=== PATIENT | female | born 1935 | race Caucasian/White ===

== ENCOUNTER 2017-06-14 13:08 | Emergency (ER) | payer MEDICARE, OTHER ==
--- NOTE | 2017-06-14 13:49 | Emergency Department Record ---
History of Present Illness - General Chief Complaint: General Stated Complaint: CONSTIPATION X4 DAYS Time Seen by Provider: 06/14/17 13:42 Mode of Arrival: Ambulatory - [place] Coma Scale Eye Response: (4) Open spontaneously Motor Response: (6) Obeys commands Verbal Response: (5) Oriented [place] Total: 15 - Related Data Home Medications Medication Instructions Recorded Confirmed Last Taken Ascorbic Acid [Vitamin C] 1,000 mg PO DAILY 06/14/17 06/14/17 06/14/17 Aspirin [Aspir-Low] 81 mg PO DAILY 06/14/17 06/14/17 06/14/17 Cholecalciferol (Vitamin D3) 2,000 unit PO DAILY 06/14/17 06/14/17 06/14/17 [Vitamin D3] Multivitamin [Multi-Vitamin Daily] 1 each PO DAILY 06/14/17 06/14/17 06/14/17 Rosuvastatin Calcium [Crestor] 40 mg PO DAILY 06/14/17 06/14/17 06/14/17 Allergies Allergy/AdvReac Type Severity Reaction Status Date / Time No Known Drug Allergies Allergy Verified 06/14/17 13:14 Travel Screening - Travel/Exposure Within Last 30 Days Have you traveled within the last 30 days?: No - Travel/Exposure Within Last Year Have you traveled outside the [place] in the last year?: No - Additonal Travel Details Have you been exposed to anyone with a communicable illness?: No - Travel Symptoms Symptom Screening: None Past Medical History - SOCIAL HISTORY Smoking Status: Never smoker Alcohol Use: None Drug Use: None - RESPIRATORY Hx Respiratory Disorders: No - CARDIOVASCULAR Hx Cardio Disorders: Yes Hx Chest Pain: Yes (in past no problems for 2 years) Hx Hypotension: Yes Comment:: high cholesterol.pt just had echo and carotid doppler for memory loss. - NEURO Hx Neuro Disorders: Yes Comment:: had one day a few months ago when she had a memory problem. having work up - GI Hx GI Disorders: Yes Hx Abdominal Pain: Yes (ternder area where mass is) Hx Reflux: Yes - Hx Genitourinary Disorders: Yes Hx Bladder Problem: Yes (urgency) - ENDOCRINE Hx Endocrine Disorders: No - MUSCULOSKELETAL Hx Musculoskeletal Disorders: Yes Hx Arthritis: Yes (low back and hands) Hx Gout: Yes Hx Osteoporosis: Yes - PSYCH Hx Psych Problems: Yes Hx Anxiety: Yes (because of surgery) - HEMATOLOGY/ONCOLOGY Hx Hematology/Oncology Disorders: Yes Hx Anemia: Yes (in past) Hx Cancer: Yes (skin CA conn 3-4 hours ago) Family Medical History Any Significant Family History?: Yes Hx Cancer: Brother/Sister Hx Heart Disease: Mother Hx Resp Disorders: Father Course Vital Signs 06/14/17 06/14/17 13:26 13:39 Temperature 98 F 98 F Pulse Rate 71 71 Respiratory 16 Rate Blood Pressure 138/72 138/72 Pulse Ox 98 Disposition Clinical Impression: Constipation Disposition: Home, Self-Care Condition: (1) Good Additional Instructions: follow up with family Dr. martins twice a day and if stools get loose go to once a day Forms: Patient Portal Access Quality - Quality Measures Quality Measures: N/A - Blood Pressure Screening Does Patient Have Any of the Following: No Blood Pressure Classification: Pre-Hypertensive BP Reading Systolic Measurement: 138 Diastolic Measurement: 72 Screening for High Blood Pressure: < Pre-Hypertensive BP, F/U Documented > [ G8950] Pre-Hypertensive Follow-up Interventions: Referral to alternative/primary care provider.
--- NOTE | 2017-06-14 13:57 | Emergency Department Record ---
History of Present Illness - General Chief Complaint: General Stated Complaint: CONSTIPATION X4 DAYS Time Seen by Provider: 06/14/17 13:42 Mode of Arrival: Ambulatory - History of Present Illness Initial comments: Patient states no BM for 4 days and see by GI Dr. Bowles and she was sent to the ED to have a enema. She didn't think she could do it at home. - [place] Coma Scale Eye Response: (4) Open spontaneously Motor Response: (6) Obeys commands Verbal Response: (5) Oriented [place] Total: 15 - Related Data Home Medications Medication Instructions Recorded Confirmed Last Taken Ascorbic Acid [Vitamin C] 1,000 mg PO DAILY 06/14/17 06/14/17 06/14/17 Aspirin [Aspir-Low] 81 mg PO DAILY 06/14/17 06/14/17 06/14/17 Cholecalciferol (Vitamin D3) 2,000 unit PO DAILY 06/14/17 06/14/17 06/14/17 [Vitamin D3] Multivitamin [Multi-Vitamin Daily] 1 each PO DAILY 06/14/17 06/14/17 06/14/17 Rosuvastatin Calcium [Crestor] 40 mg PO DAILY 06/14/17 06/14/17 06/14/17 Allergies Allergy/AdvReac Type Severity Reaction Status Date / Time No Known Drug Allergies Allergy Verified 06/14/17 13:14 Travel Screening - Travel/Exposure Within Last 30 Days Have you traveled within the last 30 days?: No - Travel/Exposure Within Last Year Have you traveled outside the [place] in the last year?: No - Additonal Travel Details Have you been exposed to anyone with a communicable illness?: No - Travel Symptoms Symptom Screening: None Review of Systems Reviewed: No additional complaints except as noted below Constitutional: Reports: As per HPI. Denies: Chills, Fever, Malaise, Night sweats, Weakness, Weight change Eyes: Reports: As per HPI. Denies: Eye discharge, Eye pain, Photophobia, Vision change ENT: Reports: As per HPI. Denies: Congestion, Dental pain, Ear pain, Epistaxis , Hearing loss, Throat pain Respiratory: Reports: As per HPI. Denies: Cough, Dyspnea, Hemoptysis, Stridor, Wheezes Cardiovascular: Reports: As per HPI. Denies: Arrhythmia, Chest pain, Dyspnea on exertion, Edema, Murmurs, Orthopnea, Palpitations, Paroxysmal nocturnal dyspnea, Rheumatic Fever, Syncope Endocrine: Reports: As per HPI. Denies: Fatigue, Heat or cold intolerance, Polydipsia, Polyuria Gastrointestinal: Reports: As per HPI. Denies: Abdominal pain, Constipation, Diarrhea, Hematemesis, Hematochezia, Melena, Nausea, Vomiting Genitourinary: Reports: As per HPI. Denies: Abnormal menses, Discharge, Dyspareunia, Dysuria, Frequency, Hematuria, Incontinence, Retention, Urgency Musculoskeletal: Reports: As per HPI. Denies: Arthralgia, Back pain, Gout, Joint swelling, Myalgia, Neck pain Skin: Reports: As per HPI. Denies: Bruising, Change in color, Change in hair/ nails, Lesions, Pruritus, Rash Neurological: Reports: As per HPI. Denies: Abnormal gait, Confusion, Headache, Numbness, Paresthesias, Seizure, Tingling, Tremors, Vertigo, Weakness Psychiatric: Reports: As per HPI. Denies: Anxiety, Auditory hallucinations, Depression, Homicidal thoughts, Suicidal thoughts, Visual hallucinations Hematological/Lymphatic: Reports: As per HPI. Denies: Anemia, Blood Clots, Easy bleeding, Easy bruising, Swollen glands Past Medical History - SOCIAL HISTORY Smoking Status: Never smoker Alcohol Use: None Drug Use: None - RESPIRATORY Hx Respiratory Disorders: No - CARDIOVASCULAR Hx Cardio Disorders: Yes Hx Chest Pain: Yes (in past no problems for 2 years) Hx Hypotension: Yes Comment:: high cholesterol.pt just had echo and carotid doppler for memory loss. - NEURO Hx Neuro Disorders: Yes Comment:: had one day a few months ago when she had a memory problem. having work up - GI Hx GI Disorders: Yes Hx Abdominal Pain: Yes (ternder area where mass is) Hx Reflux: Yes - Hx Genitourinary Disorders: Yes Hx Bladder Problem: Yes (urgency) - ENDOCRINE Hx Endocrine Disorders: No - MUSCULOSKELETAL Hx Musculoskeletal Disorders: Yes Hx Arthritis: Yes (low back and hands) Hx Gout: Yes Hx Osteoporosis: Yes - PSYCH Hx Psych Problems: Yes Hx Anxiety: Yes (because of surgery) - HEMATOLOGY/ONCOLOGY Hx Hematology/Oncology Disorders: Yes Hx Anemia: Yes (in past) Hx Cancer: Yes (skin CA conn 3-4 hours ago) Family Medical History Any Significant Family History?: Yes Hx Cancer: Brother/Sister Hx Heart Disease: Mother Hx Resp Disorders: Father Physical Exam - General General Appearance: Alert, Oriented x3, Cooperative, Mild distress - Head Head exam: Normal inspection - Eye Eye exam: Normal appearance, PERRL Pupils: Normal accommodation - ENT ENT exam: Normal exam, Mucous membranes moist, Normal external ear exam, Normal orophraynx, TM's normal bilaterally Ear exam: Normal external inspection. negative: External canal tenderness Nasal Exam: Normal inspection. negative: Discharge, Sinus tenderness Mouth exam: Normal external inspection, Tongue normal Teeth exam: Normal inspection. negative: Dental caries Throat exam: Normal inspection. negative: Tonsillar erythema, Tonsillar exudate - Neck Neck exam: Normal inspection, Full ROM. negative: Tenderness - Respiratory Respiratory exam: Normal lung sounds bilaterally. negative: Respiratory distress - Cardiovascular Cardiovascular Exam: Regular rate, Normal rhythm, Normal heart sounds - GI/Abdominal GI/Abdominal exam: Soft, Normal bowel sounds. negative: Tenderness - Rectal Rectal exam: Normal rectal tone, Other (stool in the rectum hard) - exam: Deferred - Extremities Extremities exam: Normal inspection, Full ROM, Normal capillary refill. negative: Tenderness - Back Back exam: Reports: Normal inspection, Full ROM. Denies: Muscle spasm, Rash noted, Tenderness - Neurological Neurological exam: Alert, Normal gait, Oriented X3, Reflexes normal - Psychiatric Psychiatric exam: Normal affect, Normal mood - Skin Skin exam: Dry, Intact, Normal color, Warm Course Vital Signs 06/14/17 06/14/17 13:26 13:39 Temperature 98 F 98 F Pulse Rate 71 71 Respiratory 16 Rate Blood Pressure 138/72 138/72 Pulse Ox 98 enema fleets no response , molasses enema with sucess Disposition Clinical Impression: Constipation Qualifiers: Constipation type: slow transit constipation Qualified Code(s): K59.01 - Slow transit constipation Disposition: Home, Self-Care Condition: (1) Good Additional Instructions: follow up with family Dr. martins twice a day and if stools get loose go to once a day Forms: Patient Portal Access Time of Disposition: 15:12 Quality - Quality Measures Quality Measures: N/A - Blood Pressure Screening Does Patient Have Any of the Following: No Blood Pressure Classification: Pre-Hypertensive BP Reading Systolic Measurement: 138 Diastolic Measurement: 72 Screening for High Blood Pressure: < Pre-Hypertensive BP, F/U Documented > [ G8950] Pre-Hypertensive Follow-up Interventions: Referral to alternative/primary care provider.
== END 2017-06-14 15:15 | disposition home or self-care (01) ==
LOC: ER 13:08
DX: K59.01 Slow transit constipation (principal)
CPT/HCPCS: 99282